=== PATIENT | female | born 1990 | race Caucasian/White ===

== ENCOUNTER 2017-04-02 22:37 | Emergency (ER) | payer OTHER ==
[2017-04-02 22:42] VITALS: BP 134/69; PULSE 86; TEMP 98.2; BMI 27.4
--- NOTE | 2017-04-02 23:17 | PDOC ---
History of Present Illness - General History Source: Patient Exam Limitations: No Limitations - History of Present Illness Initial Comments: 04/02/17 23:29 The patient is a 26 year old female with no significant past medical history who presents to the ED for few days of suprapubic pain. Patient reports 2 weeks ago she was seen at a clinic in [address] [place] [address] for vaginal bleeding and suprapubic pain where she was told that she was miscarrying. States she had her blood drawn and was told that her beta hCG was shown to be positive and decreasing. No ultrasound was done. Patient reports she was unsure how far along she was. States her vaginal bleeding and suprapubic resolved 2 weeks ago. However, a few days ago she developed suprapubic pain again and generalized itchiness in the groin region. Denies vaginal bleeding/discharge at this time. States she does not believe she is currently . The patient denies fever, chills, cough, SOB, chest pain, and palpitations. The patient denies nausea, vomiting, and diarrhea. The patient denies dysuria, hematuria, urgency, and frequency. Allergies: NKDA Social History: No alcohol, tobacco, or drug use reported. Past Surgical History: None reported PCP: Dr. Cindy Brown <Nadira Romero - Last Filed: 04/03/17 01:48> - General History Source: Patient <Ace Baptiste - Last Filed: 04/03/17 03:51> - General Chief Complaint: Pain Stated Complaint: ABDOMINAL PAIN Time Seen by Provider: 04/02/17 23:14 Past History <Nadira Romero - Last Filed: 04/03/17 01:48> - Psycho/Social/Smoking Cessation Hx Suicidal Ideation: No Smoking Status: No Smoking History: Never smoked Have you smoked in the past 12 months: No Number of Cigarettes Smoked Daily: 0 Hx Alcohol Use: No Drug/Substance Use Hx: No Substance Use Type: None <Ace Baptiste - Last Filed: 04/03/17 03:51> - Past Medical History Allergies/Adverse Reactions: Allergies Allergy/AdvReac Type Severity Reaction Status Date / Time No Known Allergies Allergy Verified 04/02/17 22:39 Home Medications: Ambulatory Orders NK [No Known Home Medication] 07/14/16 Review of Systems - Review of Systems Able to Perform ROS?: Yes Comments:: 04/02/17 23:30 CONSTITUTIONAL: Absent: fever, no chills, no fatigue EYES: Absent: visual changes ENT: Absent: ear pain, no sore throat CARDIOVASCULAR: Absent: chest pain, no palpitations RESPIRATORY: Absent: cough, no SOB GI: +suprapubic pain Absent: no nausea, no vomiting, no constipation, no diarrhea GENITOURINARY: Absent: dysuria, no frequency, no hematuria MUSCULOSKELETAL: Absent: back pain, no arthralgia, no myalgia SKIN: +generalized itchiness in the groin region Absent: rash NEURO: Absent: headache <HeatherNadira - Last Filed: 04/03/17 01:48> *Physical Exam - Vital Signs Last Vital Signs Temp Pulse Resp BP Pulse Ox 98.2 F 86 18 134/69 100 04/02/17 22:39 04/02/17 22:39 04/02/17 22:39 04/02/17 22:39 04/02/17 22:39 - Physical Exam Comments: 04/02/17 23:30 GENERAL: Well-appearing, well-nourished. No apparent distress. HEENT: Normocephalic, atraumatic. PERRL, EOM intact. CARDIOVASCULAR: Normal S1, S2. Regular rate and rhythm. PULMONARY: Clear to auscultation bilaterally. ABDOMEN: Soft, non-distended, non-tender. PELVIC: Deferred to ultrasound EXTREMITIES: Normal ROM in all four extremities. No gross deformities. SKIN: Warm, dry. No rash NEUROLOGICAL: No focal neurological deficits. <HeatherNadira - Last Filed: 04/03/17 01:48> - Vital Signs Last Vital Signs Temp Pulse Resp BP Pulse Ox 98.2 F 86 18 134/69 100 04/02/17 22:39 04/02/17 22:39 04/02/17 22:39 04/02/17 22:39 04/02/17 22:39 <Ace Baptiste - Last Filed: 04/03/17 03:51> ED Treatment Course - RADIOLOGY Radiograph Interpretation: 04/03/17 01:48 Exam: Transabdominal and endovaginal sonogram Reviewed by Imaging manager retention: Findings: The uterus is anteverted and measures 7.5 x 4.8 x 5.2 cm. The left ovary is of normal appearance and measures 2.5 x 2.8 x 2.9 cm. A 1.8 cm cyst is noted. Normal arterial flow is seen in the left ovary on color Doppler images. The right ovary has a normal appearance and measures 3.1 x 1.9 x 1.9 cm with normal arterial flow. On endovaginal images the endometrium measures 4 mm in diameter within normal limits. A left ovarian cyst measures up to 1.9 cm in diameter. Arterial flow is demonstrated in the ovarian parenchyma on color Doppler images. Again seen is a normal-appearing right ovary with normal arterial flow. No free fluid seen. Impression: Normal appearance of the uterus and endometrium. Normal appearance of the right ovary. Left ovarian cyst. Otherwise normal appearance left ovary. Normal vascular flow seen in both ovaries. <Nadira Romero - Last Filed: 04/03/17 01:48> Medical Decision Making - Medical Decision Making 04/03/17 03:50 Dr. Baptiste: The scribe's documentation has been prepared under my direction and personally reviewed by me in its entirery. I confirm that the note above accurately reflects all work, treatment, procedures, and medical decision making performed by me. All studies ordered on pt are all unremarkable. Pt eloped before discharge. No need for recall. <Ace Baptiste - Last Filed: 04/03/17 03:51> *DC/Admit/Observation/Transfer - Attestations Scribe Attestion: 04/02/17 23:30 Documentation prepared by Nadira Romero, acting as medical director/head team physician for Ace Baptiste MD/DO. <Nadira Romero - Last Filed: 04/03/17 01:48> - Discharge Dispostion Admit: No <Ace Baptiste - Last Filed: 04/03/17 03:51> Diagnosis at time of Disposition: Abdominal pain Qualifiers: Abdominal location: generalized Qualified Code(s): R10.84 - Generalized abdominal pain - Discharge Dispostion Disposition: ELOPED Condition at time of disposition: Stable - Referrals Referrals: Cindy Dee MD [Primary Care Provider] - - Patient Instructions Printed Discharge Instructions: DI for Abdominal Pain-Adult
[2017-04-03 00:10] LABS: URINE APPEARANCE CLEAR; URINE BILIRUBIN NEGATIVE (NEGATIVE); URINE COLOR YELLOW; URINE GLUCOSE (UA) NEGATIVE (NEGATIVE); URINE KETONE TRACE (NEGATIVE); URINE NITRITE NEGATIVE (NEGATIVE); URINE PROTEIN NEGATIVE (NEGATIVE); URINE UROBILINOGEN NEGATIVE E.U./dl (0.2-1.0)
[2017-04-03 00:28] LABS: URINE BLOOD 1+ (NEGATIVE); URINE LEUK ESTERASE 3+ (NEGATIVE)
[2017-04-03 00:45] LABS: URINE MUCUS FEW; URINE RBC 3 /hpf (0-3); URINE WBC 17 /hpf (3-5)
== END 2017-04-03 03:00 | disposition home or self-care (01) ==
LOC: JER 22:37
DX: R10.84 Generalized abdominal pain (principal); N83.202 Unspecified ovarian cyst, left side
CPT/HCPCS: 36415; 76830-TC; 81003; 81015; 84702; 84703; 99281-25

== ENCOUNTER 2023-01-14 16:06 | Emergency (ER) | payer OTHER ==
[2023-01-14 16:16] VITALS: BMI 31.6
[2023-01-14] MEDS ORDERED: MAG HYDROX/AL HYDROX/SIMETH 30 ML UNIT-DOSE CUP PO ONE (17:49)
[2023-01-14] MEDS ORDERED: MAG HYDROX/AL HYDROX/SIMETH 30 ML UNIT-DOSE CUP ONE (17:59)
[2023-01-14 19:20] VITALS: BP 148/88; PULSE 88; RESP 16; TEMP 98.2
== END 2023-01-14 19:19 | disposition home or self-care (01) ==
LOC: JER 16:06
DX: R07.9 Chest pain, unspecified (principal); K21.9 Gastro-esophageal reflux disease without esophagitis
CPT/HCPCS: 71046-TC-FY; 84703; 93005; 93010; 99285-25

== ENCOUNTER 2023-01-31 11:19 | Emergency (ER) | payer OTHER ==
[2023-01-31 11:31] VITALS: BP 139/90; PULSE 82; RESP 18; TEMP 98.1; BMI 30.6
[2023-01-31] MEDS ORDERED: ACETAMINOPHEN 1000 MG/100 ML BAG IVPB ONE (11:41)
[2023-01-31] MEDS ORDERED: SODIUM CHLORIDE 1,000 ML IV STA (11:41)
[2023-01-31] MEDS ORDERED: ACETAMINOPHEN INJECTION 100 ML IVPB ONE (11:53)
[2023-01-31 12:21] LABS: BASO % 0.3 % (0-2.0); EOS % 0.3 % (0-4.5); HEMATOCRIT 41.6 % (32.4-45.2); HEMOGLOBIN 14.7 GM/dL (10.7-15.3); LYMPH % 22.6 % (8-40); MCH 29.9 pg (25.7-33.7); MCHC 35.3 g/dl (32.0-36.0); MEAN CELL VOLUME 84.7 fl (80-96); MEAN PLT VOLUME 8.7 fl (7.5-11.1); MONO % 4.7 % (3.8-10.2); NEUT % 72.1 % (42.8-82.8); PLATELET COUNT 241 10^3/uL (134-434); RBC 4.92 M/mm3 (3.60-5.2); RDW 12.8 % (11.6-15.6); WHITE BLOOD COUNT 5.7 K/mm3 (4.0-10.0)
[2023-01-31 12:23] LABS: PH,URINE 6.5 (5.0-8.0); URINE APPEARANCE CLEAR; URINE BILIRUBIN NEGATIVE (NEGATIVE); URINE COLOR YELLOW; URINE GLUCOSE (UA) NEGATIVE (NEGATIVE); URINE KETONE TRACE (NEGATIVE); URINE LEUK ESTERASE NEGATIVE (NEGATIVE); URINE NITRITE NEGATIVE (NEGATIVE); URINE PROTEIN NEGATIVE (NEGATIVE); URINE UROBILINOGEN 0.2 mg/dL (0.2-1.0)
[2023-01-31 12:31] LABS: HCG,QUALITATIVE URINE NEGATIVE
[2023-01-31 12:41] LABS: ALBUMIN 4.1 g/dl (3.4-5.0); CALCIUM 9.2 mg/dL (8.5-10.1)
[2023-01-31 12:42] LABS: BLOOD UREA NITROGEN 12.1 mg/dL (7-18)
[2023-01-31 12:44] LABS: CREATININE 0.7 mg/dL (0.55-1.3)
[2023-01-31 12:46] LABS: BILIRUBIN,TOTAL 0.7 mg/dL (0.2-1); TOT PROT 7.6 g/dl (6.4-8.2)
== END 2023-01-31 15:44 | disposition home or self-care (01) ==
LOC: JER 11:19
PROC: 3E033NZ Introduction of Analgesics, Hypnotics, Sedatives into Peripheral Vein, Percutaneous Approach (ICD-10-PCS; principal; 2023-01-31)
PROC: 3E0337Z Introduction of Electrolytic and Water Balance Substance into Peripheral Vein, Percutaneous Approach (ICD-10-PCS; 2023-01-31)
DX: N88.8 Other specified noninflammatory disorders of cervix uteri (principal); R10.31 Right lower quadrant pain
CPT/HCPCS: 36415; 76830-TC; 80053; 81003; 83690; 84703; 85025; 87077; 87086; 99284-25

== ENCOUNTER 2023-04-02 06:13 | Emergency (ER) | payer OTHER ==
[2023-04-02 06:29] VITALS: BP 134/94; PULSE 91; RESP 18; TEMP 98.3; BMI 28.3
[2023-04-02] MEDS ORDERED: MAG HYDROX/AL HYDROX/SIMETH 30 ML UNIT-DOSE CUP PO ONE (07:46)
[2023-04-02] MEDS ORDERED: ACETAMINOPHEN 500 MG TABLET (FP) PO ONE (07:47)
[2023-04-02] MEDS ORDERED: ACETAMINOPHEN 325 MG TABLET (FP) ONE (07:59)
[2023-04-02] MEDS ORDERED: MAG HYDROX/AL HYDROX/SIMETH 30 ML UNIT-DOSE CUP ONE (07:59)
[2023-04-02 08:04] LABS: HCG,QUALITATIVE URINE Negative
[2023-04-02 08:09] LABS: EPI CELLS >36 /uL (0-25.1); HYALINE CASTS 0 /uL (0-3.1); URINE APPEARANCE CLEAR; URINE BACTERIA 1267 /uL (0-1359); URINE BILIRUBIN NEGATIVE (NEGATIVE); URINE COLOR YELLOW; URINE GLUCOSE (UA) NEGATIVE (NEGATIVE); URINE KETONE NEGATIVE (NEGATIVE); URINE LEUK ESTERASE 2+ (NEGATIVE); URINE NITRITE NEGATIVE (NEGATIVE); URINE PROTEIN NEGATIVE (NEGATIVE); URINE RBC 30 /uL (0-23.9); URINE UROBILINOGEN 0.2 mg/dL (0.2-1.0); URINE WBC 37 /uL (0-25.8)
[2023-04-02 09:30] LABS: BASO % 0.3 % (0-2.0); EOS % 0.2 % (0-4.5); HEMATOCRIT 41.5 % (32.4-45.2); HEMOGLOBIN 14.4 GM/dL (10.7-15.3); LYMPH % 17.1 % (8-40); MCHC 34.7 g/dl (32.0-36.0); MEAN CELL VOLUME 83.7 fl (80-96); MEAN PLT VOLUME 8.2 fl (7.5-11.1); MONO % 4.9 % (3.8-10.2); NEUT % 77.5 % (42.8-82.8); PLATELET COUNT 237 10^3/uL (134-434); RBC 4.96 M/mm3 (3.60-5.2); RDW 13.1 % (11.6-15.6); WHITE BLOOD COUNT 6.7 K/mm3 (4.0-10.0)
[2023-04-02 09:44] LABS: CALCIUM 9.2 mg/dL (8.5-10.1)
[2023-04-02 09:48] LABS: CREATININE 0.6 mg/dL (0.55-1.3)
[2023-04-02 09:49] LABS: BILIRUBIN,TOTAL 0.8 mg/dL (0.2-1); TOT PROT 7.6 g/dl (6.4-8.2)
== END 2023-04-02 10:55 | disposition home or self-care (01) ==
LOC: JER 06:13
DX: R10.13 Epigastric pain (principal); M54.6 Pain in thoracic spine
CPT/HCPCS: 36415; 80053; 81003; 83690; 84703; 85025; 87086; 87186; 99283-25

== ENCOUNTER 2023-05-27 07:12 | Emergency (ER) | payer OTHER ==
[2023-05-27 07:34] VITALS: BP 133/82; PULSE 84; RESP 18; TEMP 98.5; BMI 30.9
[2023-05-27] MEDS ORDERED: MAG HYDROX/AL HYDROX/SIMETH 30 ML UNIT-DOSE CUP PO ONE (08:33)
[2023-05-27] MEDS ORDERED: ACETAMINOPHEN 325 MG TABLET (FP) PO ONE (08:33)
[2023-05-27] MEDS ORDERED: FAMOTIDINE 20 MG TABLET PO ONE (08:34)
[2023-05-27] MEDS ORDERED: FAMOTIDINE 20 MG TABLET ONE ×2 (08:43→08:49)
[2023-05-27] MEDS ORDERED: ACETAMINOPHEN 325 MG TABLET (FP) ONE ×2 (08:43→08:49)
[2023-05-27] MEDS ORDERED: MAG HYDROX/AL HYDROX/SIMETH 30 ML UNIT-DOSE CUP ONE (08:44)
== END 2023-05-27 10:55 | disposition home or self-care (01) ==
LOC: JER 07:12
DX: R10.13 Epigastric pain (principal); R63.0 Anorexia
CPT/HCPCS: 99284-25

== ENCOUNTER 2023-08-14 12:34 | Emergency (ER) | payer OTHER ==
[2023-08-14 12:46] VITALS: BP 130/91; PULSE 102; RESP 18; TEMP 98.3; BMI 31.4
[2023-08-14] MEDS ORDERED: ACETAMINOPHEN 500 MG TABLET (FP) PO ONE (13:47)
[2023-08-14] MEDS ORDERED: ACETAMINOPHEN 500 MG TABLET (FP) ONE (13:51)
[2023-08-14 14:35] LABS: BASO % 0.3 % (0-2.0); HEMATOCRIT 42.8 % (32.4-45.2); HEMOGLOBIN 14.3 GM/dL (10.7-15.3); LYMPH % 18.6 % (8-40); MCH 28.4 pg (25.7-33.7); MCHC 33.3 g/dl (32.0-36.0); MEAN CELL VOLUME 85.5 fl (80-96); MEAN PLT VOLUME 8.1 fl (7.5-11.1); MONO % 3.8 % (3.8-10.2); NEUT % 77.3 % (42.8-82.8); PLATELET COUNT 274 10^3/uL (134-434); RBC 5.01 M/mm3 (3.60-5.2); RDW 12.9 % (11.6-15.6); WHITE BLOOD COUNT 8.8 K/mm3 (4.0-10.0)
[2023-08-14 14:43] LABS: POTASSIUM 4.1 mmol/L (3.5-5.1)
[2023-08-14 14:45] LABS: BLOOD UREA NITROGEN 9.9 mg/dL (7-18); CALCIUM 9.2 mg/dL (8.5-10.1)
[2023-08-14 14:46] LABS: ALBUMIN 4.2 g/dl (3.4-5.0)
[2023-08-14 14:49] LABS: CREATININE 0.6 mg/dL (0.55-1.3)
[2023-08-14 14:50] LABS: BILIRUBIN,TOTAL 0.5 mg/dL (0.2-1); TOT PROT 7.8 g/dl (6.4-8.2)
== END 2023-08-14 15:34 | disposition home or self-care (01) ==
LOC: JER 12:34
DX: R07.9 Chest pain, unspecified (principal); M79.10 Myalgia, unspecified site
CPT/HCPCS: 36415; 71046-TC-FY; 80053; 84703; 85025; 85379; 93005; 93010; 99285-25

== ENCOUNTER 2023-12-19 08:39 | Emergency (ER) | payer OTHER ==
[2023-12-19 08:45] VITALS: BP 131/89; PULSE 81; RESP 16; TEMP 98.7; BMI 32.5
[2023-12-19 09:00] LABS: EPI CELLS 14 /uL (0-25.1); HYALINE CASTS 0 /uL (0-3.1); PH,URINE 6.5 (5.0-8.0); URINE APPEARANCE CLEAR; URINE BACTERIA 150 /uL (0-1359); URINE BILIRUBIN NEGATIVE (NEGATIVE); URINE COLOR YELLOW; URINE GLUCOSE (UA) NEGATIVE (NEGATIVE); URINE KETONE NEGATIVE (NEGATIVE); URINE LEUK ESTERASE TRACE (NEGATIVE); URINE NITRITE NEGATIVE (NEGATIVE); URINE PROTEIN NEGATIVE (NEGATIVE); URINE RBC 19 /uL (0-23.9); URINE UROBILINOGEN 0.2 mg/dL (0.2-1.0); URINE WBC 10 /uL (0-25.8)
[2023-12-19] MEDS ORDERED: ACETAMINOPHEN 325 MG TABLET (FP) ONE (09:40)
[2023-12-19] MEDS: ACETAMINOPHEN 500 MG TABLET (FP) PO ONE (09:44)
[2023-12-19] MEDS ORDERED: DOXYCYCLINE HYCLATE 100 MG CAPSULE PO ONE (10:02)
[2023-12-19] MEDS: DOXYCYCLINE HYCLATE 100 MG CAPSULE PO ONE (10:16)
[2023-12-19 10:24] LABS: BASO % 0.2 % (0-2.0); EOS % 0.2 % (0-4.5); HEMATOCRIT 45.1 % (32.4-45.2); HEMOGLOBIN 15.4 GM/dL (10.7-15.3); LYMPH % 18.1 % (8-40); MCH 29.3 pg (25.7-33.7); MCHC 34.2 g/dl (32.0-36.0); MEAN CELL VOLUME 85.8 fl (80-96); MEAN PLT VOLUME 8.4 fl (7.5-11.1); MONO % 4.1 % (3.8-10.2); NEUT % 77.4 % (42.8-82.8); PLATELET COUNT 284 10^3/uL (134-434); RBC 5.26 M/mm3 (3.60-5.2); RDW 12.9 % (11.6-15.6); WHITE BLOOD COUNT 7.8 K/mm3 (4.0-10.0)
[2023-12-19 10:33] LABS: POTASSIUM 4.4 mmol/L (3.5-5.1)
[2023-12-19 10:35] LABS: ALBUMIN 4.3 g/dl (3.4-5.0)
[2023-12-19 10:38] LABS: CREATININE 0.7 mg/dL (0.55-1.3)
[2023-12-19 10:40] LABS: TOT PROT 7.8 g/dl (6.4-8.2)
[2023-12-19 10:42] LABS: BILIRUBIN,TOTAL 0.7 mg/dL (0.2-1)
== END 2023-12-19 12:35 | disposition home or self-care (01) ==
LOC: JER 08:39
DX: R10.31 Right lower quadrant pain (principal); N89.8 Other specified noninflammatory disorders of vagina; R10.2 Pelvic and perineal pain
CPT/HCPCS: 36415; 76830-TC; 80053; 81003; 84703; 85025; 86850; 86900; 86901; 87086; 87491; 87591; 87661; 99284-25

== ENCOUNTER 2024-01-27 08:21 | Emergency (ER) | payer OTHER ==
[2024-01-27 08:35] VITALS: BP 132/86; PULSE 91; RESP 18; TEMP 98.4; BMI 32.5
[2024-01-27] MEDS ORDERED: ACETAMINOPHEN 500 MG TABLET (FP) ONE (10:25)
[2024-01-27] MEDS: ACETAMINOPHEN 500 MG TABLET (FP) PO ONE (10:26)
== END 2024-01-27 11:32 | disposition home or self-care (01) ==
LOC: JER 08:21
DX: M54.6 Pain in thoracic spine (principal); R51.9 Headache, unspecified; R20.2 Paresthesia of skin
CPT/HCPCS: 72070-TC-FY; 99283-25

== ENCOUNTER 2024-02-23 07:33 | Emergency (ER) | payer OTHER ==
[2024-02-23 07:42] VITALS: BMI 32.5
[2024-02-23] MEDS ORDERED: METOCLOPRAMIDE HCL INJECTION 10 MG/2 ML VIAL ONE (09:03)
[2024-02-23] MEDS ORDERED: ACETAMINOPHEN INJECTION 100 ML IVPB ONE (09:03)
[2024-02-23] MEDS: LACTATED RINGERS SOLUTION 1,000 ML/1,000 ML INFUS.BAG IV SCH (09:12)
[2024-02-23] MEDS: METOCLOPRAMIDE HCL INJECTION 10 MG/2 ML VIAL IVPUSH ONE (09:12)
[2024-02-23] MEDS: ACETAMINOPHEN 1000 MG/100 ML BAG IVPB ONE (09:12)
[2024-02-23 09:29] LABS: POTASSIUM 3.8 mmol/L (3.5-5.1)
[2024-02-23 09:31] LABS: BASO % 0.5 % (0-2.0); CALCIUM 9.1 mg/dL (8.5-10.1); EOS % 0.2 % (0-4.5); HEMATOCRIT 43.4 % (32.4-45.2); HEMOGLOBIN 14.6 GM/dL (10.7-15.3); LYMPH % 16.3 % (8-40); MCH 29.4 pg (25.7-33.7); MCHC 33.6 g/dl (32.0-36.0); MEAN CELL VOLUME 87.6 fl (80-96); MONO % 5.4 % (3.8-10.2); NEUT % 77.6 % (42.8-82.8); PLATELET COUNT 255 10^3/uL (134-434); RBC 4.95 M/mm3 (3.60-5.2); RDW 13.3 % (11.6-15.6)
[2024-02-23 09:36] LABS: CREATININE 0.7 mg/dL (0.55-1.3)
[2024-02-23 09:37] LABS: BILIRUBIN,TOTAL 0.7 mg/dL (0.2-1); TOT PROT 7.3 g/dl (6.4-8.2)
[2024-02-23] MEDS ORDERED: KETOROLAC TROMETHAMINE 15 MG/ML VIAL ONE (09:42)
[2024-02-23 10:21] VITALS: BP 115/74; PULSE 63; RESP 17; TEMP 98.9
== END 2024-02-23 10:29 | disposition home or self-care (01) ==
LOC: JER 07:33
PROC: 3E030NZ Introduction of Analgesics, Hypnotics, Sedatives into Peripheral Vein, Open Approach (ICD-10-PCS; principal; 2024-02-23)
PROC: 3E030GC Introduction of Other Therapeutic Substance into Peripheral Vein, Open Approach (ICD-10-PCS; 2024-02-23)
DX: R51.9 Headache, unspecified (principal); R11.0 Nausea; R00.0 Tachycardia, unspecified
CPT/HCPCS: 36415; 80053; 85025; 99284-25; J0131

== ENCOUNTER 2024-04-01 13:27 | Emergency (ER) | payer OTHER ==
[2024-04-01 13:32] VITALS: BP 148/99; PULSE 96; RESP 18; TEMP 98; BMI 39.4
[2024-04-01] MEDS ORDERED: METOCLOPRAMIDE HCL INJECTION 10 MG/2 ML VIAL ONE (14:24)
[2024-04-01] MEDS ORDERED: ACETAMINOPHEN 500 MG TABLET (FP) ONE (14:29)
[2024-04-01] MEDS: METOCLOPRAMIDE HCL INJECTION 10 MG/2 ML VIAL IVPB ONE (14:46)
[2024-04-01] MEDS: SODIUM CHLORIDE 1,000 ML IV STA (14:46)
[2024-04-01] MEDS: ACETAMINOPHEN 500 MG TABLET (FP) PO ONE (14:46)
== END 2024-04-01 16:13 | disposition home or self-care (01) ==
LOC: JER 13:27
PROC: 3E033GC Introduction of Other Therapeutic Substance into Peripheral Vein, Percutaneous Approach (ICD-10-PCS; principal; 2024-04-01)
PROC: 3E0337Z Introduction of Electrolytic and Water Balance Substance into Peripheral Vein, Percutaneous Approach (ICD-10-PCS; 2024-04-01)
DX: G44.209 Tension-type headache, unspecified, not intractable (principal)
CPT/HCPCS: 70450-TC; 84703; 99284-25

== ENCOUNTER 2024-06-07 08:42 | Emergency (ER) | payer OTHER ==
[2024-06-07 08:49] VITALS: BP 134/86; PULSE 85; RESP 18; TEMP 98.6; BMI 31.6
[2024-06-07 09:49] LABS: BASO % 0.3 % (0-2.0); EOS % 0.4 % (0-4.5); HEMOGLOBIN 14.5 GM/dL (10.7-15.3); LYMPH % 22.8 % (8-40); MCH 29.5 pg (25.7-33.7); MCHC 34.6 g/dl (32.0-36.0); MEAN CELL VOLUME 85.2 fl (80-96); NEUT % 67.5 % (42.8-82.8); PLATELET COUNT 229 10^3/uL (134-434); RBC 4.93 M/mm3 (3.60-5.2); WHITE BLOOD COUNT 5.2 K/mm3 (4.0-10.0)
[2024-06-07 09:52] LABS: EPI CELLS 18 /uL (0-25.1); HYALINE CASTS 0 /uL (0-3.1); PH,URINE 6.5 (5.0-8.0); URINE APPEARANCE CLEAR; URINE BACTERIA 189 /uL (0-1359); URINE BILIRUBIN NEGATIVE (NEGATIVE); URINE COLOR YELLOW; URINE GLUCOSE (UA) NEGATIVE (NEGATIVE); URINE KETONE NEGATIVE (NEGATIVE); URINE LEUK ESTERASE NEGATIVE (NEGATIVE); URINE NITRITE NEGATIVE (NEGATIVE); URINE PROTEIN NEGATIVE (NEGATIVE); URINE RBC 43 /uL (0-23.9); URINE UROBILINOGEN 0.2 mg/dL (0.2-1.0); URINE WBC 7 /uL (0-25.8)
[2024-06-07 10:18] LABS: POTASSIUM 4.1 mmol/L (3.5-5.1)
[2024-06-07 10:20] LABS: CALCIUM 9.1 mg/dL (8.5-10.1)
[2024-06-07 10:21] LABS: ALBUMIN 3.7 g/dl (3.4-5.0); BLOOD UREA NITROGEN 9.6 mg/dL (7-18)
[2024-06-07 10:24] LABS: CREATININE 0.7 mg/dL (0.55-1.3)
[2024-06-07 10:25] LABS: BILIRUBIN,TOTAL 0.4 mg/dL (0.2-1); TOT PROT 7.1 g/dl (6.4-8.2)
[2024-06-07] MEDS ORDERED: SUCRALFATE 1 GM TABLET (FP) ONE (11:02)
[2024-06-07] MEDS: SUCRALFATE 1 GM TABLET (FP) PO ONE (11:04)
[2024-06-07] MEDS ORDERED: ONDANSETRON 4 MG/2 ML VIAL ONE (11:54)
[2024-06-07] MEDS ORDERED: ACETAMINOPHEN INJECTION 100 ML IVPB ONE (11:54)
[2024-06-07] MEDS ORDERED: FAMOTIDINE 20 MG/50 ML IVPB 20 MG/50 ML MG IVPB ONE (11:54)
[2024-06-07] MEDS: SODIUM CHLORIDE 1,000 ML IV STA (12:02)
[2024-06-07] MEDS: FAMOTIDINE 20 MG/50 ML IVPB 20 MG/50 ML MG IVPB ONE (12:02)
[2024-06-07] MEDS: ONDANSETRON 4 MG/2 ML VIAL IVPUSH ONE (12:02)
[2024-06-07] MEDS: ACETAMINOPHEN 1000 MG/100 ML BAG IVPB ONE (12:20)
== END 2024-06-07 14:10 | disposition home or self-care (01) ==
LOC: JER 08:42
PROC: 3E033GC Introduction of Other Therapeutic Substance into Peripheral Vein, Percutaneous Approach (ICD-10-PCS; principal; 2024-06-07)
PROC: 3E033NZ Introduction of Analgesics, Hypnotics, Sedatives into Peripheral Vein, Percutaneous Approach (ICD-10-PCS; 2024-06-07)
PROC: 3E033GC Introduction of Other Therapeutic Substance into Peripheral Vein, Percutaneous Approach (ICD-10-PCS; 2024-06-07)
DX: R10.9 Unspecified abdominal pain (principal)
CPT/HCPCS: 36415; 80053; 81003; 83690; 84703; 85025; 99284-25; J0131